=== PATIENT | female | born 1990 | race American Indian/Alaskan Native ===

== ENCOUNTER 2022-02-08 21:39 | Emergency (ER) | payer SELFPAY ==
[2022-02-08 23:48] VITALS: BP 116/75
[2022-02-09 02:22] LABS: HCG Qualitative,Urine Negative (Negative)
== END 2022-02-09 01:01 | disposition left against medical advice (07) ==
LOC: ED 21:39
DX: Z11.3 Encounter for screening for infections with a predominantly sexual mode of transmission (principal); Z53.21 Procedure and treatment not carried out due to patient leaving prior to being seen by health care provider
CPT/HCPCS: 81025

== ENCOUNTER 2022-02-22 17:35 | Emergency (ER) | payer SELFPAY ==
[2022-02-22 18:09] VITALS: BP 110/67
--- NOTE | 2022-02-24 12:04 | Electrocardiograph Report ---
[facility] Test Date: 2022-02-22 Test Time: 18:16:15 Pat Name: NAJMA LIM Department: Room: Gender: F [employer]: JOJO : 1990 Requested By: CARIE REVELES Order Number: [id number] Reading MD: Franklin Gay Measurements Intervals [place] Rate: 99 P: 17 WI: 189 QRS: 19 QRSD: 67 T: 23 QT: 327 QTc: 419 Interpretive Statements Sinus rhythm No previous ECG available for comparison Electronically Signed On 02-24-2022 12:03:25 EDT by Franklin Gay
== END 2022-02-23 02:02 | disposition left against medical advice (07) ==
LOC: ED 17:35
DX: Z32.00 Encounter for pregnancy test, result unknown (principal); Z53.21 Procedure and treatment not carried out due to patient leaving prior to being seen by health care provider
CPT/HCPCS: 93005

== ENCOUNTER 2022-03-29 07:46 | Emergency (ER) | payer SELFPAY ==
[2022-03-29 07:48] VITALS: BP 132/86
[2022-03-29 09:34] LABS: Basophils % (Auto) 0.4 % (0.0-1.8); Eosinophils # (Auto) 0.1 K/mm3 (0.0-0.4); Eosinophils % (Auto) 1.1 % (0.0-4.3); Hematocrit 36.5 % (30.3-42.9); Hemoglobin 12.4 gm/dl (10.1-14.3); Lymphocytes # (Auto) 1.7 K/mm3 (1.2-5.4); Lymphocytes % (Auto) 30.7 % (13.4-35.0); Mean Corpuscular HGB Conc 34 % (30-34); Mean Corpuscular Volume 77 fl (79-97); Monocytes # (Auto) 0.7 K/mm3 (0.0-0.8); Monocytes % (Auto) 11.7 % (0.0-7.3); Platelet Count 400 K/mm3 (140-440); Red Blood Count 4.72 M/mm3 (3.65-5.03)
[2022-03-29 09:51] LABS: Alanine Aminotransferase 15 units/L (7-56); Albumin 4.2 g/dL (3.9-5); BUN/Creatinine Ratio 16; Blood Urea Nitrogen 14 mg/dL (7-17); Calcium 9.4 mg/dL (8.4-10.2); Hemolysis Index 3
[2022-03-29 10:29] LABS: Bilirubin,Urine NEG (Negative); Blood,Urine NEG (Negative); Color,Urine Yellow (Yellow)
[2022-03-29 10:34] LABS: Calcium Oxalate Crystals,Urine 1+; Mucus,Urine 2+ /HPF
== END 2022-03-29 10:21 | disposition left against medical advice (07) ==
LOC: ED 07:46
DX: R11.10 Vomiting, unspecified (principal); Z53.21 Procedure and treatment not carried out due to patient leaving prior to being seen by health care provider
CPT/HCPCS: 36415; 80053; 81001; 85025; 87086